=== PATIENT | female | born 1930 | race Caucasian/White ===

== ENCOUNTER 2017-07-09 07:26 | Emergency (ER) | payer MEDICARE, BC ==
[~2017-07-09] VITALS: Ht 165.1 cm; Wt 65.0 kg
[~2017-07-09 07:26] MED LIST: ASPIRIN81 M1 OR; COREG6.25 MG OR; COZAAR50 MG OR; EZETIMIBE PO; IMDUR30 MG OR; LASIX40 MG OR; PLAVIX75 MG OR; PREVACHOL PO; PROTONIX40 M1 OR; SYNTHROID88 MCG OR; TUMS500 MG OR; XANAX0.25 MG OR; aldactone OR
[2017-07-09 09:07] VITALS: BP 206/79
== END 2017-07-09 09:13 | disposition home or self-care (01) ==
LOC: ED 07:26
PROC: 0HQ1XZZ Repair Face Skin, External Approach (ICD-10-PCS; principal; 2017-07-09)
DX: S01.81XA Laceration without foreign body of other part of head, initial encounter (principal); W01.0XXA Fall on same level from slipping, tripping and stumbling without subsequent striking against object, initial encounter; Y93.01 Activity, walking, marching and hiking; Y92.009 Unspecified place in unspecified non-institutional (private) residence as the place of occurrence of the external cause; Z79.01 Long term (current) use of anticoagulants

== ENCOUNTER 2017-07-18 09:12 | Emergency (ER) | payer MEDICARE, BC ==
[~2017-07-18] VITALS: Ht 165.1 cm; Wt 73.0 kg
[2017-07-18 09:43] VITALS: BP 154/71
== END 2017-07-18 09:47 | disposition home or self-care (01) ==
LOC: ED 09:12
DX: S01.81XD Laceration without foreign body of other part of head, subsequent encounter (principal)

== ENCOUNTER 2017-08-25 11:48 | Emergency (ER) | payer MEDICARE, BC ==
[~2017-08-25] VITALS: Ht 165.1 cm; Wt 70.0 kg
[2017-08-25 12:37] VITALS: BP 132/63
== END 2017-08-25 12:45 | disposition home or self-care (01) ==
LOC: ED 11:48
PROC: 0HQFXZZ Repair Right Hand Skin, External Approach (ICD-10-PCS; principal; 2017-08-25)
DX: S61.411A Laceration without foreign body of right hand, initial encounter (principal); I10 Essential (primary) hypertension; I25.10 Atherosclerotic heart disease of native coronary artery without angina pectoris; W45.0XXA Nail entering through skin, initial encounter; Y92.009 Unspecified place in unspecified non-institutional (private) residence as the place of occurrence of the external cause; Z95.5 Presence of coronary angioplasty implant and graft

== ENCOUNTER 2017-09-07 11:39 | Emergency (ER) | payer MEDICARE, BC ==
[~2017-09-07] VITALS: Ht 165.1 cm; Wt 66.0 kg
[~2017-09-07 11:39] MED LIST changes: -COREG6.25 MG OR; +COREG6.25 MG PO; -COZAAR50 MG OR; +COZAAR50 MG PO; -IMDUR30 MG OR; +ISOSORB MONO30 MG PO; -LASIX40 MG OR; +LASIX40 MG PO; -PLAVIX75 MG OR; +PLAVIX75 MG PO; -SYNTHROID88 MCG OR; +SYNTHROID88 MCG PO; -TUMS500 MG OR; +TUMS500 MG PO; -XANAX0.25 MG OR; +XANAX0.25 MG PO
[2017-09-07] MEDS ORDERED: ALDACTONE50 MG PO (11:54)
[2017-09-07] MEDS ORDERED: PROTONIX40 M2 PO (11:54)
[2017-09-07] MEDS ORDERED: ASPIRIN CHEWABL81 MG PO (11:55)
[2017-09-07] MEDS ORDERED: PRAVASTATIN80 MG PO (11:56)
[2017-09-07] MEDS ORDERED: ZETIA10 MG PO (11:56)
[2017-09-07 12:20] VITALS: BP 104/70
== END 2017-09-07 12:20 | disposition home or self-care (01) ==
LOC: ED 11:39
DX: S01.101D Unspecified open wound of right eyelid and periocular area, subsequent encounter (principal); S61.001D Unspecified open wound of right thumb without damage to nail, subsequent encounter; I10 Essential (primary) hypertension; I25.10 Atherosclerotic heart disease of native coronary artery without angina pectoris; X58.XXXD Exposure to other specified factors, subsequent encounter; Z95.5 Presence of coronary angioplasty implant and graft

== ENCOUNTER 2017-10-10 16:25 | Emergency (ER) | payer MEDICARE, BC ==
[~2017-10-10] VITALS: Ht 165.1 cm; Wt 60.0 kg
[~2017-10-10 16:25] MED LIST changes: +ALDACTONE50 MG PO; +ASPIRIN CHEWABL81 MG PO; +PRAVASTATIN80 MG PO; +PROTONIX40 M2 PO; +ZETIA10 MG PO
[2017-10-10] MEDS ORDERED: KEFLEX500 MG PO (17:58)
[2017-10-10 18:00] VITALS: BP 146/55
[2017-10-10] MEDS ORDERED: DOXYCYC MONO100 M1 PO (18:16)
== END 2017-10-10 18:10 | disposition home or self-care (01) ==
LOC: ED 16:25
PROC: 0HQ1XZZ Repair Face Skin, External Approach (ICD-10-PCS; principal; 2017-10-10)
DX: S01.81XA Laceration without foreign body of other part of head, initial encounter (principal); S00.31XA Abrasion of nose, initial encounter; S60.012A Contusion of left thumb without damage to nail, initial encounter; I10 Essential (primary) hypertension; I25.10 Atherosclerotic heart disease of native coronary artery without angina pectoris; W19.XXXA Unspecified fall, initial encounter; Y92.512 Supermarket, store or market as the place of occurrence of the external cause; Z91.81 History of falling; Z95.5 Presence of coronary angioplasty implant and graft

== ENCOUNTER 2017-10-18 10:22 | Emergency (ER) | payer MEDICARE, BC ==
[~2017-10-18] VITALS: Ht 165.1 cm; Wt 68.0 kg
[~2017-10-18 10:22] MED LIST changes: +DOXYCYC MONO100 M1 PO; +KEFLEX500 MG PO
[2017-10-18 10:45] VITALS: BP 130/45
== END 2017-10-18 10:45 | disposition home or self-care (01) ==
LOC: ED 10:22
DX: S01.81XD Laceration without foreign body of other part of head, subsequent encounter (principal)

== ENCOUNTER 2018-07-04 10:36 | Emergency (ER) | payer MEDICARE, BC ==
[~2018-07-04] VITALS: Ht 165.1 cm; Wt 68.0 kg
[2018-07-04 12:26] VITALS: BP 176/77
== END 2018-07-04 12:33 | disposition home or self-care (01) ==
LOC: ED 10:36
DX: S00.81XA Abrasion of other part of head, initial encounter (principal); S60.311A Abrasion of right thumb, initial encounter; S60.312A Abrasion of left thumb, initial encounter; I10 Essential (primary) hypertension; I25.10 Atherosclerotic heart disease of native coronary artery without angina pectoris; W01.0XXA Fall on same level from slipping, tripping and stumbling without subsequent striking against object, initial encounter; Y92.480 Sidewalk as the place of occurrence of the external cause

== ENCOUNTER 2020-02-10 16:45 | Emergency (ER) | payer MEDICARE, BC ==
[~2020-02-10] VITALS: Ht 165.1 cm; Wt 63.6 kg
[2020-02-10 18:08] LABS: HEMATOCRIT 38.7 % (37.0-47.0); HEMOGLOBIN 12.3 g/dl (12.0-16.0); IMMATURE GRANULOCYTES 0.2 % (0.0-5.0); MEAN CELL VOLUME 99.5 fL CALC (80.0-100.0); MEAN CORPUSCULAR HGB 31.6 pG CALC (26.0-32.0); MEAN CORPUSCULAR HGB CONC 31.8 g/dL CAL (32.0-36.0); NEUT# 3.11 thou/uL (2.00-7.15); RED BLOOD COUNT 3.89 mill/uL (4.20-5.60); RED CELL DISTRI WIDTH 13.8 % (11.5-15.5)
[2020-02-10 18:19] LABS: ALBUMIN 3.9 g/dL (3.2-5.0); ALKALINE PHOSPHATASE 118 u/l (38-126); ANION GAP 12 (6-22 (CALC)); BILIRUBIN, TOTAL 0.4 mg/dL (0.0-1.4); BUN 28 mg/dL (8-23); BUN/CREATININE RATIO 24 (12-20 (CALC)); CARBON DIOXIDE 24 mmol/l (22-30); CHLORIDE 107 mmol/l (95-108); CREATININE 1.2 mg/dL (0.5-1.0); GFR 42 ML/MIN (>=60 (CALC)); GFR FOR AFR.AMER. 51 ML/MIN (>=60 (CALC)); POTASSIUM 3.9 mmol/l (3.5-5.1); SGOT/AST 21 u/l (9-36); SODIUM 139 mmol/l (137-146); TOTAL PROTEIN 7.1 g/dL (6.3-8.2)
[2020-02-10 18:31] LABS: MYOGLOBIN 58 ng/mL (0 - 62)
[2020-02-10 18:33] LABS: URINE BILIRUBIN - DIPSTICK NEGATIVE (NEGATIVE); URINE BLOOD DIPSTICK NEGATIVE (NEGATIVE); URINE COLOR YELLOW; URINE GLUCOSE - DIPSTICK NEGATIVE (NEGATIVE); URINE KETONE NEGATIVE (NEGATIVE); URINE LEUK ESTERASE TRACE (NEGATIVE); URINE NITRITE - DIPSTICK NEGATIVE (Negative); URINE PH 5.5 (4.5-8.0); URINE PROTEIN - DIPSTICK NEGATIVE (NEG-TRACE); URINE SPECIFIC GRAVITY >=1.030; URINE UROBILINOGEN - DIPSTICK 0.2 E.U./dL (0.2)
[2020-02-10] MEDS ORDERED: SERTRALINE50 MG PO (18:36)
[2020-02-10] MEDS ORDERED: METOPROL TAR25 MG PO (18:37)
[2020-02-10] MEDS ORDERED: HYDROCHLOROT12.5 M1 PO (18:38)
[2020-02-10] MEDS ORDERED: VITAMIN B-12500 MCG PO (18:47)
[2020-02-10] MEDS ORDERED: VITAMIN D1000 UNIT PO (18:49)
[2020-02-10] MEDS ORDERED: CALCIUM600 M1 PO (18:50)
[2020-02-10 19:51] VITALS: BP 131/58
== END 2020-02-10 20:00 | disposition home or self-care (01) ==
LOC: ED 16:45
PROVIDERS: Emergency Medicine
DX: R19.7 Diarrhea, unspecified (principal); R53.1 Weakness; I10 Essential (primary) hypertension; I25.10 Atherosclerotic heart disease of native coronary artery without angina pectoris; F41.9 Anxiety disorder, unspecified; I25.2 Old myocardial infarction; Z95.5 Presence of coronary angioplasty implant and graft; Z86.73 Personal history of transient ischemic attack (TIA), and cerebral infarction without residual deficits